=== PATIENT | female | born 1965 | race Hispanic/Latino ===

== ENCOUNTER 2016-12-14 09:04 | Emergency (ER) | payer OTHER ==
--- NOTE | 2016-12-15 09:02 | RAD ---
PROCEDURE: Right Hand Radiographs. HISTORY: Pain COMPARISON: None. FINDINGS: BONES: Normal. No fracture. JOINTS: Normal. No osteoarthritic changes. SOFT TISSUES: Normal. OTHER FINDINGS: None. IMPRESSION: Normal right hand radiographs.
== END 2016-12-14 11:13 | disposition home or self-care (01) ==
LOC: H.EDERROR 09:04 → H.ER 09:04 → H.EDERROR 11:13
DX: S62.302A Unspecified fracture of third metacarpal bone, right hand, initial encounter for closed fracture (principal); W07.XXXA Fall from chair, initial encounter; Y93.9 Activity, unspecified